=== PATIENT | female | born 1985 | race Caucasian/White ===

== ENCOUNTER → 2017-07-06 | Day surgery (SDC) | payer OTHER ==
[~2017-07-06] VITALS: Ht 165.1 cm; Wt 73.9 kg
[~2017-07-06] MED LIST: AMOXICILLIN500 MG PO; MIDRIN (DURADR1 CAP PO; ZITHROMAX Z PA250 MG PO
--- NOTE | ~2017-07-06 | WRIGHTHP ---
[place], [place] PATIENT HISTORY AND PHYSICAL EXAM NAME: YVAN ADRIAN [facility] #: [id number] UNIT #: [id number] ROOM: DOCTOR: RAMÓN BELTRE MD BIRTHDATE: [birth year] DOS: 07/01/2017 HISTORY OF PRESENT ILLNESS: The patient herself is a very pleasant 32-year-old white female who is a 2, para 2, status post tubal ligation, whose last menstrual period started about 4-5 days ago, but it is complicated by the information that I'm about to present. She presented on 06/17/2017 stating that she had dysfunctional bleeding since early February 2017. She stated that she had normal q. 28 days cycles, lasting 5 days until after her 2 years ago. At that time, she stated that she had retained placenta even with and she had a tubal ligation at that time. She had passed a large piece of what appeared to be placenta based on the picture she showed me, but she was treated only with some Ergotrate to stop the heavy bleeding, which apparently did. Since the delivery, her periods have extended every 32 days, but now lasts 7 days are quite a bit heavier. Since early February as we said, she has been having continuous bleeding in a fairly steady flow. She states that she feels anemic and without makeup, she appears pasty. She also had related a vague history of some other reproductive cancers in her family, but this is really not very certain. She finally started to complain of some significant pain and cramping with these bleeding episodes. The patient had some laboratory work performed and returned to the office 2 weeks later on 06/30/2017, first having been given Aygestin per our protocol in the office and she failed that by having some cessation or diminishment of the bleeding, but then on the fifth day of the Aygestin which is 11th day therapy protocol, she began bleeding yet again. She states that the bleeding is heavier than it had been even prior to the Aygestin. We had performed thyroid function tests which were normal. Her CBC revealed only very mild anemia. Her serum ferritin was still normal, although in the lower range of normal. She was to have had an ultrasound, but has not accomplished this yet. We reviewed her report and her discharge summary from this last , there was no mention made of any bleeding and retained products or any other issues of abnormality. The patient obviously is very tired of the situation and now that she has not responded accordingly to the Aygestin, now with pain and dysmenorrhea being added to her list of problems, we have decided that our best choice is to proceed with D and C and hysteroscopy as an outpatient and then at that time, hopefully obtain information that will help us not only make a diagnosis, but help us more appropriately to establish the appropriate therapy. The risks and benefits, indications, potential complications and alternatives of the D and C and hysteroscopy were given, understanding stated and she signed the consent. PAST MEDICAL HISTORY: Significant only for the anemia as we mentioned. She has had vaginal delivery and then a section. Her last Pap was negative in April 2017. SOCIAL HISTORY: The patient does smoke about a half pack per day. She does not drink. ALLERGIES: She has no known allergies. MEDICATIONS: The only medication that she was taking was the Aygestin and some [id number] iron therapy. [place], [place] PATIENT HISTORY AND PHYSICAL EXAM NAME: YVAN ADRIAN UNIT #: [id number] ROOM: DOCTOR: RAMÓN BELTRE MD BIRTHDATE: [birth year] REVIEW OF SYSTEMS: Otherwise stable. FAMILY HISTORY: Does reveal her father to have a diagnosis of hypertension and cancer, but type of cancer is not noted. OBSTETRIC HISTORY: She is a 3, para 2, AB 1 with as I said, the vaginal delivery, the and she had 1 spontaneous miscarriage. PHYSICAL EXAMINATION: GENERAL: Reveals a pleasant white female. She is 5 feet 5 inches, 163 pounds, BMI is 27. VITAL SIGNS: Blood pressure is 106/67, oxygen sat is 100% and she has no history of sleep apnea. HEENT: Grossly intact. NECK: Grossly intact. LUNGS: Grossly intact. CARDIAC: Grossly intact. BREASTS: Grossly intact. ABDOMEN: Grossly intact. EXTREMITIES: Grossly intact. NEUROLOGIC: Grossly intact. GENITOURINARY: External genitalia, vagina normal. Cervix grossly normal and there is moderate bleeding noted. Uterus is anteverted and anteflexed, somewhat boggy mobile about 7-8 weeks in size, mildly tender. The adnexa do not palpate any abnormalities and no significant pain. RECTAL: Deferred. ASSESSMENT: The patient with chronic and significant dysfunctional bleeding and now failure to respond to the Aygestin therapy protocol per the office. Her workup otherwise has been stable and she has mild anemia only. Her ultrasound is still pending, but because of the other set of the circumstance as described above, the patient will be brought to outpatient surgery on 07/06/2017 for a hysteroscopy and D and C. [place], [place] PATIENT HISTORY AND PHYSICAL EXAM [facility]: [facility] [id number] UNIT #: [id number] ROOM: DOCTOR: RAMÓN BELTRE MD BIRTHDATE: [birth year] RAMÓN BELTRE MD CM:HISPHYS:PATIENT HISTORY AND PHYSICAL EXAMINATION [id number] RAMÓN BELTRE MD 07/02/17 0936 interface
--- NOTE | ~2017-07-06 | O ---
[place], [place] OPERATIVE NOTE NAME: YVAN ADRIAN UNIT #: [id number] ROOM: DOCTOR: RAMÓN GARCIA MD BIRTHDATE: [birth year] DOS: 07/06/2017 PREOPERATIVE DIAGNOSES: Chronic dysfunctional uterine bleeding since delivery 2 years ago, pelvic pain and dysmenorrhea. POSTOPERATIVE DIAGNOSES: Chronic dysfunctional uterine bleeding since delivery 2 years ago, pelvic pain and dysmenorrhea with no additional findings at the time of the operation, which consisted of hysteroscopy and dilation and curettage. SURGEON: Dr. Garcia and Dr. Lopez. ANESTHETIC: MAC. ESTIMATED BLOOD LOSS: Minimal. REPLACEMENTS: IV fluids. COMPLICATIONS: There were no complications. The patient's condition to recovery stable. OPERATIVE SUMMARY: The patient was taken to the operating room in supine position. MAC anesthesia, lithotomy position, prepped and draped in routine manner. Bladder was straight cath of clear urine. Cervix was grasped. The uterus sounded to 9 cm. The cervix progressively dilated followed by hysteroscopic examination of the intrauterine cavity, which did not reveal any significant anatomic atypicalities or anything suggesting no retained cotyledon or any other abnormality stemming back to her previous delivery. We then performed a thorough curettage and repeated our hysteroscopy again revealed no additional abnormalities. At this point, we removed all instrumentation. We did place one 3-0 chromic suture at the right-sided tenaculum, ____, but did not respond to silver nitrate stick and once this stitch was placed, good hemostasis was achieved. The patient then had all instrumentation removed and was cleaned off, taken out of lithotomy position, awakened and transferred to recovery with stable vital signs, stable sponge and instrument count, and good hemostasis. [place], [place] OPERATIVE NOTE NAME: YVAN ADRIAN UNIT #: [id number] ROOM: DOCTOR: RAMÓN GARCIA MD BIRTHDATE: [birth year] RAMÓN GARCAI MD CM:OPRECORD:OPERATIVE NOTE [id number] RAMÓN GARCIA MD 07/06/17 1044 interface
[2017-07-06 06:35] VITALS: BP 100/46
[2017-07-06 08:07] VITALS: BP 106/55
[2017-07-06 08:24] VITALS: BP 109/62
[2017-07-06 08:37] VITALS: BP 122/65
[2017-07-06 08:58] VITALS: BP 125/68
== END | disposition home or self-care (01) ==
LOC: SDC 07-02 08:45
DX: N93.8 Other specified abnormal uterine and vaginal bleeding (principal); N94.6 Dysmenorrhea, unspecified; K21.9 Gastro-esophageal reflux disease without esophagitis; F41.9 Anxiety disorder, unspecified; F32.9 Major depressive disorder, single episode, unspecified; Z80.9 Family history of malignant neoplasm, unspecified

== ENCOUNTER 2017-07-16 20:57 | Emergency (ER) | payer OTHER ==
[~2017-07-16] VITALS: Ht 165.1 cm; Wt 72.6 kg
[2017-07-16] MEDS ORDERED: TYLENOL WITH C1 EACH PO (21:13)
[2017-07-16] MEDS ORDERED: REGLAN10 M1 PO (21:13)
== END 2017-07-16 21:27 | disposition home or self-care (01) ==
LOC: ED 20:57
DX: G43.909 Migraine, unspecified, not intractable, without status migrainosus (principal); F17.200 Nicotine dependence, unspecified, uncomplicated

== ENCOUNTER 2017-07-31 11:33 | Emergency (ER) | payer OTHER ==
[~2017-07-31] VITALS: Ht 165.1 cm; Wt 72.6 kg
[~2017-07-31 11:33] MED LIST changes: +REGLAN10 M1 PO; +TYLENOL WITH C1 EACH PO
[2017-07-31 12:35] LABS: BILIRUBIN 1+ (NEGATIVE); BLOOD 2+ (NEGATIVE); CLARITY CLOUDY (CLEAR); COLOR YELLOW (YELLOW); GLUCOSE NEGATIVE (NEGATIVE); KETONE TRACE (NEGATIVE); LEUKO ESTERASE NEGATIVE (NEGATIVE); NITRITE NEGATIVE (NEGATIVE); PH 5.5 (5.0-9.0); SPECIFIC GRAVITY >= 1.030 (1.005-1.030); UROBILINOGEN 0.2 E.U./dl (0.2-1.0)
[2017-07-31 12:48] LABS: BACTERIA 1+; MUCOUS 2+
[2017-07-31 12:49] LABS: BASO % 0.4 % (0.0-1.0); EOS # 0.3 10*3/uL (0.0-0.4); EOS % 3.3 % (1.0-4.0); HEMATOCRIT 34.7 % (37.0-47.0); LYMPH # 2.3 10*3/uL (1.3-4.4); MEAN CELL VOLUME 85.3 fl (81.0-99.0); MEAN CORPUSCULAR HGB CONC 31.7 g/dl (33.0-37.0); MEAN PLATELET VOLUME 10.7 fl (9.6-12.3); MONO # 0.5 10*3/uL (0.1-1.0); MONO % 5.2 % (3.0-9.0); NEUT # 6.9 10*3/uL (2.3-7.9); NEUT % 67.8 % (47.0-73.0); PLATELET COUNT AUTOMATED 236 10*3/uL (130-400); RED BLOOD COUNT 4.07 10*6/uL (4.10-5.10); RED CELL DISTRI WIDTH 14.1 % (0-14.5); WHITE BLOOD COUNT 10.2 10*3/uL (4.8-10.8)
[2017-07-31 13:03] LABS: ALBUMIN 3.6 gm/dl (3.1-4.5); ALKALINE PHOSPHATASE 61 U/L (45-117); BUN 12 mg/dl (7-24); CHLORIDE 105 mmol/L (98-107); CREATININE 0.65 mg/dL (0.55-1.02); POTASSIUM 3.8 mmol/L (3.5-5.1); SGOT/AST 14 IU/L (3-35); SGPT/ALT 11 U/L (12-78); SODIUM 137 mmol/L (136-145); TOTAL PROTEIN 7.2 gm/dL (6.4-8.2)
[2017-07-31] MEDS ORDERED: MIRALAX POWDER17 G1 PO (15:04)
== END 2017-07-31 15:09 | disposition home or self-care (01) ==
LOC: ED 11:33
PROVIDERS: Emergency Medicine; Nurse Practitioner Family
DX: K59.00 Constipation, unspecified (principal); R03.0 Elevated blood-pressure reading, without diagnosis of hypertension; F17.200 Nicotine dependence, unspecified, uncomplicated; Z98.890 Other specified postprocedural states; Z98.51 Tubal ligation status

== ENCOUNTER 2022-03-30 16:48 | Emergency (ER) | payer OTHER ==
[~2022-03-30 16:48] MED LIST changes: +MIRALAX POWDER17 G1 PO
== END 2022-03-30 18:11 | disposition left against medical advice (07) ==
LOC: ED 16:48
DX: Z53.21 Procedure and treatment not carried out due to patient leaving prior to being seen by health care provider (principal)

== ENCOUNTER 2024-02-08 15:47 | Emergency (ER) | payer OTHER ==
[~2024-02-08] VITALS: Ht 167.6 cm; Wt 88.5 kg
[2024-02-08] MEDS ORDERED: AMITRIPTYLINE25 MG PO (16:12)
[2024-02-08] MEDS ORDERED: ACETAMINOPHEN 325 MG TAB PO ONE (16:20)
== END 2024-02-08 17:50 | disposition home or self-care (01) ==
LOC: ED 15:47
DX: S50.01XA Contusion of right elbow, initial encounter (principal); S63.501A Unspecified sprain of right wrist, initial encounter; K21.9 Gastro-esophageal reflux disease without esophagitis; F41.9 Anxiety disorder, unspecified; F32.A Depression, unspecified; Z98.51 Tubal ligation status; Z98.890 Other specified postprocedural states; Y04.0XXA Assault by unarmed brawl or fight, initial encounter; Y93.89 Activity, other specified; Y92.009 Unspecified place in unspecified non-institutional (private) residence as the place of occurrence of the external cause; Y99.8 Other external cause status

== ENCOUNTER 2024-10-23 17:14 | Emergency (ER) | payer OTHER ==
[~2024-10-23] VITALS: Ht 172.7 cm; Wt 93.0 kg
[~2024-10-23 17:14] MED LIST changes: +AMITRIPTYLINE25 MG PO
[2024-10-23] MEDS ORDERED: TEMAZEPAM15 M1 PO (18:05)
[2024-10-23] MEDS ORDERED: VRAYLAR3 MG PO (18:05)
[2024-10-23] MEDS ORDERED: CARBAMAZEPINE200 MG PO (18:05)
[2024-10-23] MEDS ORDERED: QUETIAPINE FUM100 M3 PO (18:05)
[2024-10-23] MEDS ORDERED: MUPIROCIN 15 GM TUBE T ONE (19:25)
[2024-10-23] MEDS ORDERED: CLINDAMYCIN HCL 300 MG CAPSULE PO ONE (19:30)
[2024-10-23] MEDS ORDERED: CLEOCIN HCL300 MG PO (19:34)
== END 2024-10-23 19:42 | disposition home or self-care (01) ==
LOC: ED 17:14
DX: S10.96XA Insect bite of unspecified part of neck, initial encounter (principal); L03.221 Cellulitis of neck; F41.9 Anxiety disorder, unspecified; K21.9 Gastro-esophageal reflux disease without esophagitis; F32.A Depression, unspecified; Z98.890 Other specified postprocedural states; Z87.891 Personal history of nicotine dependence; W57.XXXA Bitten or stung by nonvenomous insect and other nonvenomous arthropods, initial encounter; Y93.89 Activity, other specified; Y92.89 Other specified places as the place of occurrence of the external cause; Y99.8 Other external cause status